=== PATIENT | female | born 1995 | race Hispanic/Latino ===

== ENCOUNTER 2017-12-04 21:04 | Emergency (ER) | payer BC ==
[2017-12-04 21:13] VITALS: BP 134/73; PULSE 80; RESP 16; TEMP 99; O2SAT 100
[2017-12-04] MEDS ORDERED: Glucagon Recombinant 1 mg Inj IV ONE (21:52)
[2017-12-04] MEDS ORDERED: Midazolam 2 MG/2 ML VIAL IV ONE (21:54)
[2017-12-04] MEDS ORDERED: Sodium Chloride 0.9% 1,000 ML IV STA (21:54)
[2017-12-04] MEDS ORDERED: Midazolam 2 MG/2 ML VIAL ONE (21:58)
[2017-12-04] MEDS ORDERED: Glucagon Recombinant 1 mg Inj ONE (21:58)
--- NOTE | 2017-12-05 00:55 | ED PDOC ---
HPI: General Adult Time Seen by Provider: 12/04/17 21:21 Chief Complaint (Nursing): Foreign Body Chief Complaint (Provider): difficulty swallowing History Per: Patient History/Exam Limitations: no limitations Onset/Duration Of Symptoms: Hrs (three hours prior to arrival) Current Symptoms Are (Timing): Better Additional Complaint(s): 22 year old female presents to the ED complaining of difficulty swallowing after taking a half vitamin pill, three hours prior to arrival. Reports the pill is stuck in her throat. Denies difficulty breathing but cannot tolerate liquid or swallow spit. Also has no chest pain. PMD: Dr. Swanson Past Medical History Reviewed: Historical Data, Nursing Documentation, Vital Signs Vital Signs: Last Vital Signs Temp 99.0 F 12/04/17 21:11 Pulse 80 12/04/17 21:11 Resp 16 12/04/17 21:11 BP 134/73 12/04/17 21:11 Pulse Ox 100 12/05/17 01:58 - Medical History PMH: No Chronic Diseases - Surgical History Surgical History: No Surg Hx - Family History Family History: States: Unknown Family Hx - Allergies Allergies/Adverse Reactions: Allergies Allergy/AdvReac Type Severity Reaction Status Date / Time shellfish derived Allergy SHORTNESS Verified 12/04/17 21:11 OF BREATH Review of Systems ROS Statement: Except As Marked, All Systems Reviewed And Found Negative ENT: Positive for: Other (difficulty swallowing ) Cardiovascular: Negative for: Chest Pain Respiratory: Negative for: Other (difficulty breathing ) Physical Exam - Reviewed Nursing Documentation Reviewed: Yes Vital Signs Reviewed: Yes - Physical Exam Appears: Positive for: Well, Non-toxic, No Acute Distress Head Exam: Positive for: ATRAUMATIC, NORMAL INSPECTION, NORMOCEPHALIC Skin: Positive for: Normal Color, Warm, Dry Eye Exam: Positive for: EOMI, Normal appearance, PERRL ENT: Positive for: Normal ENT Inspection, Other (actively spitting phlegm) Neck: Positive for: Normal, Painless ROM, Supple. Negative for: Decreased ROM, Limited ROM Cardiovascular/Chest: Positive for: Regular Rate, Rhythm. Negative for: Murmur Respiratory: Positive for: Normal Breath Sounds. Negative for: Decreased Breath Sounds, Accessory Muscle Use, Wheezing, Respiratory Distress Gastrointestinal/Abdominal: Positive for: Normal Exam, Bowel Sounds, Soft. Negative for: Tenderness Back: Positive for: Normal Inspection. Negative for: L CVA Tenderness, R CVA Tenderness Extremity: Positive for: Normal ROM. Negative for: Tenderness, Pedal Edema, Deformity Neurologic/Psych: Positive for: Alert, Oriented (x3), Gait - ECG O2 Sat by Pulse Oximetry: 100 (RA) Pulse Ox Interpretation: Normal Medical Decision Making Medical Decision Making: Time: 21:52 Impression: Foreign body and throat secondary to ingesting pill; airway intact Initial Plan: --Glucagon 2 mg IV once --Normal Saline 150 mls/ hr --Midazolam 2 mg --Artist Representative --Reevaluation Patient given Glucagon and Midazolam and placed in left lateral decubitus. Patient was placed on ekg monitor and will drink carbonated liquid Clinical Impression: Foreign Body in Esophagus 11PM Patient states that she felt the pill go down and feels much better, able to swallow without difficulty. Upon provider evaluation patient is feeling better , and requires no further treatment in the ED at this time. Patient will be discharged. Counseling was provided and all questions were answered regarding diagnosis and need for follow up with PMD. There is agreement to discharge plan. Return if symptoms persist or worsen. Scribe Attestation: Documented by Angie Nam, acting as a scribe for Petey Carmona MD Provider Scribe Attestation: All medical record entries made by the Scribe were at my direction and personally dictated by me. I have reviewed the chart and agree that the record accurately reflects my personal performance of the history, physical exam, medical decision making, and the department course for this patient. I have also personally directed, reviewed, and agree with the discharge instructions and disposition. Disposition - Clinical Impression Clinical Impression: Foreign body in esophagus - Patient ED Disposition Is Patient to be Admitted: No - Disposition Referrals: Feliz Swanson MD [Staff Provider] - Disposition: Routine/Home Disposition Time: 23:00 Condition: IMPROVED Additional Instructions: Please be careful swallowing pills of that size in the future. Please get an urgent followup with ENT to evaluate for strictures, rings, or other potential structural abnormalities in your throat. Instructions: Foreign Body, Swallowed, Adult Forms: [employer] (Pashto)
== END 2017-12-04 23:45 | disposition home or self-care (01) ==
LOC: H.ER 21:04
DX: T18.198A Other foreign object in esophagus causing other injury, initial encounter (principal)
CPT/HCPCS: 96374; 96375; 99282; J1610; J2250; J7040